=== PATIENT | male | born 1985 ===

== ENCOUNTER 2021-03-19 17:06 | Emergency (ER) | payer MEDICAID, OTHER ==
[~2021-03-19] VITALS: Ht 172.7 cm; Wt 70.3 kg
[2021-03-19 17:20] VITALS: BP 148/97
[2021-03-19] MEDS ORDERED: TETRACAINE HCL 0.5% OPTH(EYE) SOLN 4ML EACHEYE ONE (17:45)
[2021-03-19] MEDS ORDERED: FLUORESCEIN SOD OPTH TEST STRIP EACHEYE ONE (17:45)
[2021-03-19] MEDS ORDERED: BACITRACIN TOP OINT 1 UD PKG TOP ONE (19:45)
[2021-03-19] MEDS ORDERED: CIPR0.3S4 OP (21:13)
[2021-03-19] MEDS ORDERED: CEPH-322 PO (21:13)
== END 2021-03-19 21:27 | disposition home or self-care (01) ==
LOC: ER 17:06
DX: S05.92XA Unspecified injury of left eye and orbit, initial encounter (principal); W22.8XXA Striking against or struck by other objects, initial encounter; Y93.89 Activity, other specified; Y92.89 Other specified places as the place of occurrence of the external cause; Y99.8 Other external cause status
CPT/HCPCS: 70480